=== PATIENT | male | born 1970 | race Two or more races ===

== ENCOUNTER 2020-04-21 22:44 | Emergency (ER) | payer OTHER ==
[~2020-04-21] VITALS: Ht 172.7 cm; Wt 81.6 kg
[2020-04-22] MEDS ORDERED: REGLAN5 MG/5 ML PO (05:16)
[2020-04-23] MEDS ORDERED: PEPCID AC20 MG PO (10:14)
[2020-04-23] MEDS ORDERED: PROTONIX40 MG PO (10:14)
== END 2020-04-22 05:25 | disposition home or self-care (01) ==
LOC: ER 22:44
DX: T18.128A Food in esophagus causing other injury, initial encounter (principal); X58.XXXA Exposure to other specified factors, initial encounter; Y93.89 Activity, other specified; Y92.89 Other specified places as the place of occurrence of the external cause; Y99.8 Other external cause status

== ENCOUNTER 2020-04-22 12:45 | Inpatient (IN) | payer OTHER ==
[~2020-04-22] VITALS: Ht 177.8 cm; Wt 65.8 kg
[~2020-04-22 12:45] MED LIST: REGLAN5 MG/5 ML PO
[2020-04-23] MEDS ORDERED: PEPCID AC20 MG PO (10:14)
[2020-04-23] MEDS ORDERED: PROTONIX40 MG PO (10:14)
== END 2020-04-23 12:13 | disposition home or self-care (01) | DRG 395 ==
LOC: ER 12:45 → MEDJ 19:07
PROVIDERS: ADMIT Internal Medicine; ATTEND Internal Medicine
PROC: 0DC28ZZ Extirpation of Matter from Middle Esophagus, Via Natural or Artificial Opening Endoscopic (ICD-10-PCS; principal; 2020-04-22)
DX: T18.128A Food in esophagus causing other injury, initial encounter (principal); M79.5 Residual foreign body in soft tissue; R13.13 Dysphagia, pharyngeal phase; Z20.828 Contact with and (suspected) exposure to other viral communicable diseases